=== PATIENT | female | born 1950 | race Caucasian/White ===

== ENCOUNTER 2023-09-08 12:37 | Emergency (ER) | payer MEDICARE ==
[2023-09-08 13:38] LABS: BASOPHILS PERCENT AUTO 0.8 % (0.0-1.0); EOSINOPHILS ABSOLUTE AUTO 0.1 K/mm3 (0.0-0.4); EOSINOPHILS PERCENT AUTO 1.6 % (0.0-6.0); HEMATOCRIT 40.6 % (37.0-47.0); IMMATURE GRAN ABSOLUTE AUTO 0.01 K/mm3 (0.00-0.05); IMMATURE GRAN PERCENT AUTO 0.2 % (0.0-0.4); LYMPHOCYTES ABSOLUTE AUTO 1.3 K/mm3 (1.0-4.8); LYMPHOCYTES PERCENT AUTO 25.9 % (24.0-44.0); MEAN CORPUSCULAR HEMOGLOBIN 32.6 pg (28.0-32.0); MEAN CORPUSCULAR HGB CONC 34.5 g/dl (32.0-36.0); MEAN CORPUSCULAR VOLUME 94.4 fl (83.0-99.0); MEAN PLATELET VOLUME 10.5 fl (9.4-12.3); MONOCYTES ABSOLUTE AUTO 0.7 K/mm3 (0.0-0.8); MONOCYTES PERCENT AUTO 13.1 % (0.0-8.0); NEUTROPHILS ABSOLUTE AUTO 2.9 K/mm3 (1.8-7.7); NEUTROPHILS PERCENT AUTO 58.4 % (41.0-71.0); PLATELET COUNT,PLT 92 K/mm3 (150-400); WHITE BLOOD CELL COUNT,WBC 5.02 K/mm3 (3.9-11.3)
[2023-09-08] MEDS: HYDROmorphone 0.5 MG/0.5 ML Syringe IVPUSH ONE (13:42)
[2023-09-08] MEDS: Sodium Chloride 0.9% 10 ML Syringe FLUSH PRN (13:42)
[2023-09-08] MEDS: Ondansetron 4 MG/2 ML SDV IVPUSH ONE (13:42)
[2023-09-08] MEDS: Sodium Chloride 0.9% 1,000 ML IV SCH (13:42)
[2023-09-08 14:07] LABS: SLIDE REVIEW ABNORMAL SMEAR
[2023-09-08 14:08] LABS: A/G RATIO 0.8 (1-2); ALBUMIN 3.3 g/dl (3.4-5.0); ANION GAP 14.3 (5-15); BILIRUBIN TOTAL 2.7 mg/dL (0.2-1.0); BUN/CREATININE RATIO 18.8 (14-18); CALCIUM 9.5 mg/dL (8.5-10.1); CREATININE 0.8 mg/dL (0.55-1.02); EST CRCL DRUG DOSING (CG) 50.26 mL/min; MAGNESIUM 1.4 mg/dL (1.8-2.4); PROTEIN TOTAL,TP 7.4 g/dl (6.4-8.2)
[2023-09-08 14:09] LABS: POTASSIUM,K 3.3 mEq/L (3.5-5.1)
[2023-09-08] MEDS: fentaNYL 100 MCG/2 ML SDV IVPUSH ONE ×2 (14:15→14:48)
[2023-09-08] MEDS ORDERED: Propofol 200 MG/20 ML SDV IVPUSH ONE (14:34)
[2023-09-08] MEDS: Acetaminophen/oxyCODONE 325-5 MG Tab PO ONE (16:41)
[2023-09-08] MEDS: Ketorolac 30 MG/ML SDV IVPUSH ONE (16:41)
== END 2023-09-08 17:29 | disposition home or self-care (01) ==
LOC: JD.ED 12:37 → EDBD 12:37 → JD.ED 17:29
DX: S42.252A Displaced fracture of greater tuberosity of left humerus, initial encounter for closed fracture (principal); S42.212A Unspecified displaced fracture of surgical neck of left humerus, initial encounter for closed fracture; I10 Essential (primary) hypertension; F17.210 Nicotine dependence, cigarettes, uncomplicated; Z79.899 Other long term (current) drug therapy; Z88.5 Allergy status to narcotic agent; W18.30XA Fall on same level, unspecified, initial encounter
CPT/HCPCS: 36415; 73030; 73200; 80053; 83735; 85025; 96374; 96375; 96376; 99284; A9270; J1170; J1885; J2405; J3010; J3490; J7030

== ENCOUNTER 2025-03-06 11:41 | Emergency (ER) | payer MEDICARE ==
[2025-03-06] MEDS: Ketorolac 60 MG/2 ML SDV IM ONE (12:20)
[2025-03-06 13:48] LABS: APPEARANCE,URINE CLOUDY (Clear); GLUCOSE,URINE NEGATIVE (Negative); OCCULT BLOOD,URINE 3+ (Negative)
[2025-03-06] MEDS: Sodium Chloride 0.9% 10 ML Syringe FLUSH PRN (13:50)
[2025-03-06 13:51] LABS: BASOPHILS ABSOLUTE AUTO 0.0 K/mm3 (0.0-0.2); BASOPHILS PERCENT AUTO 0.8 % (0.0-1.0); EOSINOPHILS ABSOLUTE AUTO 0.1 K/mm3 (0.0-0.4); EOSINOPHILS PERCENT AUTO 0.9 % (0.0-6.0); IMMATURE GRAN ABSOLUTE AUTO 0.01 K/mm3 (0.00-0.05); IMMATURE GRAN PERCENT AUTO 0.2 % (0.0-0.4); LYMPHOCYTES ABSOLUTE AUTO 1.2 K/mm3 (1.0-4.8); LYMPHOCYTES PERCENT AUTO 22.8 % (24.0-44.0); MEAN PLATELET VOLUME 10.0 fl (9.4-12.3); MONOCYTES ABSOLUTE AUTO 0.8 K/mm3 (0.0-0.8); MONOCYTES PERCENT AUTO 15.0 % (0.0-8.0); NEUTROPHILS ABSOLUTE AUTO 3.2 K/mm3 (1.8-7.7); NEUTROPHILS PERCENT AUTO 60.3 % (41.0-71.0); NRBC ABSOLUTE 0.00 (0.00-0.02); NRBC PERCENT 0.0 % (0.0-0.2); PLATELET COUNT,PLT 98 K/mm3 (150-400); RED BLOOD CELL COUNT 4.45 M/mm3 (4.10-5.30); WHITE BLOOD CELL COUNT,WBC 5.27 K/mm3 (3.9-11.3)
[2025-03-06 13:58] LABS: BUPRENORPHINE SCREEN,URINE NEGATIVE (CUTOFF=10); METHADONE SCREEN, URINE NEGATIVE (CUTOFF=200); METHAMPHETAMINES SCREEN, URINE NEGATIVE (CUTOFF=500); OXYCODONE SCREEN,URINE NEGATIVE (CUT0FF=100); THC SCREEN,URINE 20 NG/ML NEGATIVE (CUTOFF=50)
[2025-03-06 13:59] LABS: AMPHETAMINES SCREEN, URINE NEGATIVE (CUTOFF=500)
[2025-03-06 14:37] LABS: A/G RATIO 0.8 (1-2); ALANINE AMINOTRANSFERASE,ALT 25.0 U/L (14-59); ASPARTATE AMNIOTRANSFERASE,AST 38.0 U/L (15-37); BILIRUBIN TOTAL 2.1 mg/dL (0.2-1.0); BLOOD UREA NITROGEN,BUN 19.0 mg/dL (7-18); CARBON DIOXIDE,CO2 28.0 mEq/L (21-32); CHLORIDE,CL 106.0 mEq/L (98-107); CREATININE 0.8 mg/dL (0.55-1.02); EST CRCL DRUG DOSING (CG) 49.49 mL/min; ESTIMATED GFR 76.0 mL/min (>60); GLUCOSE RANDOM 92.0 mg/dL (70-99); POTASSIUM,K 3.1 mEq/L (3.5-5.1); PROTEIN TOTAL,TP 7.0 g/dl (6.4-8.2); SODIUM,NA 143.0 mEq/L (136-145)
[2025-03-06] MEDS: Iopamidol 612 MG/ML 100 ML Bottle IVPUSH ONE (14:53)
[2025-03-06 16:10] LABS: CREATINE KINASE,CK 80.0 U/L (26-192)
[2025-03-06 16:15] LABS: ETHANOL BLOOD MEDICAL 0.0 gm% (0.00)
[2025-03-06] MEDS: Potassium Chloride 20 MEQ Tab.ER PO ONE (16:54)
== END 2025-03-06 17:00 | disposition home or self-care (01) ==
LOC: JD.ED 11:41 → EDBD 11:41 → JD.ED 17:00
DX: N30.01 Acute cystitis with hematuria (principal); G24.9 Dystonia, unspecified; R26.9 Unspecified abnormalities of gait and mobility; I10 Essential (primary) hypertension; Z88.5 Allergy status to narcotic agent; W19.XXXA Unspecified fall, initial encounter
CPT/HCPCS: 36415; 70450; 72128; 72131; 74177; 80053; 80306; 80307; 81001; 82550; 85025; 86140; 87086; 96372; 96374; 99284; A9270; J0696; J1171; J1885; J7030; Q9967